=== PATIENT | female | born 1980 | race Caucasian/White ===

== ENCOUNTER → 2017-02-01 | Outpatient (CLI) | payer OTHER ==
[~2017-02-01] MED LIST: CELEXA10 MG PO; HYDROCODONE BIT1 T11 PO; LISINOPRIL10 MG PO; MIDRIN (DURADR1 CAP PO; MOTRIN600 MG PO; PHENERGAN25 M1 PO
[2017-02-01 11:15] LABS: URINE TOTAL PROTEIN CONC 14.7 mg/dL (<11.9)
== END | disposition home or self-care (01) ==
LOC: LAB 10:29
PROVIDERS: Obstetrics & Gynecology Maternal & Fetal Medicine
DX: O09.522 Supervision of elderly multigravida, second trimester (principal); O10.012 Pre-existing essential hypertension complicating pregnancy, second trimester; Z3A.00 Weeks of gestation of pregnancy not specified

== ENCOUNTER 2018-05-05 17:41 | Emergency (ER) | payer OTHER ==
[~2018-05-05] VITALS: Ht 157.4 cm; Wt 49.4 kg
[2018-05-05] MEDS ORDERED: IBUPROFEN600 MG PO (19:14)
[2018-05-05] MEDS ORDERED: AUGMENTIN 875875 MG PO (19:14)
== END 2018-05-05 19:21 | disposition home or self-care (01) ==
LOC: ED 17:41
DX: S61.452A Open bite of left hand, initial encounter (principal); Z88.2 Allergy status to sulfonamides; Z79.899 Other long term (current) drug therapy; W55.01XA Bitten by cat, initial encounter; Y93.F9 Activity, other caregiving; Y92.89 Other specified places as the place of occurrence of the external cause; Y99.8 Other external cause status